=== PATIENT | female | born 1995 | race Caucasian/White ===

== ENCOUNTER 2019-06-28 10:42 | Emergency (ER) | payer BC, SELFPAY ==
[2019-06-28 10:43] VITALS: BP 113/90; PULSE 84; RESP 17; TEMP 36.9; O2SAT 97; BMI 25.6
--- NOTE | 2019-06-28 11:18 | ED.VIS.GEN ---
History of Present Illness Chief Complaint: Other, Pain/Inj Informant: Patient Onset: Days Timing: Continuous, Waxes and wanes Quality: Deep pain rectal area Location: Rectum Current Severity: Discomfort and fullness secondary to hemorrhoids Maximum Severity: Severe - [place] last evening, vaginal Worsened by: Vaginal intercourse Relieved by: Nothing Associated Symptoms: No associated symptoms Narrative: Patient is a 23-year-old female who presents with rectal pain that was worse last evening during vaginal intercourse. Patient states she was seen by the [employer] [facility] approximately 2 weeks ago and prescribed 10 days of doxycycline for presumed infection that may have been related to placement of IUD April 16, 2019. She denies dysuria, frequency, urgency or hematuria. She is had abnormal vaginal bleeding since the IUD was placed. She denies abnormal vaginal discharge. She denies history of STD. She denies recent anal intercourse. She denies fever, chills or night sweats. She denies flank pain. She denies myalgias arthralgias or rash. Prior similar symptoms: No Recent Illness/Hospitalization: No Past Medical History - Allergies and Home Meds Allergies/Adverse Reactions: Allergies No Known Allergies Allergy (Verified 06/28/19 10:43) Primary Care Physician: [facility] Doctor,Out of [NON-STAFF] - Prior records reviewed: Yes Surgical History: appendectomy, - - Closed reduction of femur fracture Lives: Spouse/ Significant Other Smoking Status: Never smoker Drugs: None - Family History Maternal Family History: Reports: No pertinent history Review of Systems General: Denies: Chills, Fever Eyes: Denies: Visual changes - bilaterally, Blurred Vision - bilaterally, Diplopia ENT: Denies: Rhinorrhea, Sore throat Cardiovascular: Denies: Chest pain, Palpitations Respiratory: Denies: Dyspnea, Cough, Dyspnea on exertion Gastrointestinal: Denies: Abdominal pain, Nausea, Vomiting, Diarrhea Genitourinary: Denies: Dysuria, Hematuria, Frequency Musculoskeletal: Denies: Myalgias, Arthralgias, Neck pain, Back pain, Extremity Pain Skin: Denies: Rash, Wounds Neurological: Denies: Headache, Weakness, Numbness Psych: Denies: Depression, Anxiety Endocrine: Denies: Polyuria, Polydipsia Hematologic: Denies: Easy bruising, Easy bleeding Physical Exam Vital Signs/Narrative: Vital Signs Temp Pulse Resp BP Pulse Ox 06/28/19 10:43 98.4 F 84 17 113/90 H 97 Inital Vital Signs reviewed: Yes General: Well nourished, Well developed, No Acute Distress Head: Normocephalic, Atraumatic Eyes: Perrl, EOMI. Negative for: Pale conjunctiva, Scleral icterus ENT: Moist mucous membranes, No rhinorrhea Neck: Supple, Nontender, No lymphadenopathy, No JVD Cardiovascular: Regular rate, Regular rhythm, No murmurs, Normal S1, Normal S2 Respiratory: No distress, CTA bilaterally, Chest nontender Rectal: - - Small hemorrhoid noted 5:00 lithotomy position. No pain with palpation. There is discomfort with pressure applied to the cervix. : - - External genitalia normal. Vaginal mucosa appears normal. String for IUD noted. Patient had significant tenderness with palpation of the uterus and limited exam. Positive cervical motion tenderness. There is tenderness right and left adnexa as well. No appreciable mass noted. Back: Nontender, Normal Inspection Extremities: Nontender, No edema Skin: Normal color, No rash Neurological: Alert, Oriented x3, Cranial nerves II-XII grossly intact, Normal Strength, Normal Sensation Psychological: Normal affect, Normal Mood Diagnostic/Tx/Re-eval Impressions Transvaginal US 06/28/19 13:17 IMPRESSION: IUD seen within the endometrium. Moderate amount of free fluid in the cul-de-sac. Electronically Signed: Jeffry Andersen, at 14:40 EDT , Service support , 06/28/19 13:17 Transvaginal Non- [US] Stat Laboratory Results 06/28/19 06/28/19 11:24 11:24 WBC 6.4 RBC 4.52 Hgb 13.6 Hct 41.5 MCV 91.8 MCH 30.1 MCHC 32.8 RDW Std Deviation 46.0 H RDW Coeff of Junior 13.5 Plt Count 258 MPV 9.5 Immature Gran % (Auto) 0.600 Neut % (Auto) 68.5 Lymph % (Auto) 20.6 [place] % (Auto) 8.6 Eos % (Auto) 1.2 Baso % (Auto) 0.5 Absolute Neuts (auto) 4.4 Absolute Lymphs (auto) 1.32 Nucleated RBC % 0 Serum , Qual NEGATIVE Negative test and moderate amount of fluid and abrupt pain suspect ruptured ovarian cyst. Since patient is heme dynamically stable will discharge to home with appropriate home-going instruction and NSAID. Patient reports marked improvement after IV Toradol. - Medical Decision Making Since patient is complaining of pain that is worse with intercourse and there was concern for infection status post placement of IUD will perform pelvic and ultrasound if indicated. Differential diagnosis includes dyspareunia secondary to STD versus complications of IUD placement versus salpingitis. ED Disposition - Plan for ED Patient: Disposition: Home or Assisted Living Diagnosis: Ruptured ovarian cyst Instructions: Ovarian Cyst Prescriptions: Naproxen [Naprosyn] 500 mg PO BID #10 tab Transmission Status: Pending to [facility] Referrals: [facility] Doctor,Out of [NON-STAFF] - 3-5 Days if not improving Additional Instructions: Your prescription was electronically transmitted to [facility]'s pharmacy.
[2019-06-28 11:38] LABS: Absolute Lymphocyte Count 1.32 X10^3/uL (0.83-4.51); Absolute Neutrophil Count 4.4 X10^3/uL (2.0-7.7); Basophil# 0.03 X10^3/uL; Basophil% 0.5 % (0-1); Eosinophil# 0.08 X10^3/uL; Eosinophils% 1.2 % (0-5); Hematocrit 41.5 % (37-47); Hemoglobin 13.6 g/dL (12.0-15.0); Lymphocyte # 1.32 X10^3/ul (4.0); Lymphocyte % 20.6 % (19-41); Mean Corp Hgb Conc 32.8 g/dL (32-36); Mean Corpuscular Hgb 30.1 pg (27.0-32.0); Mean Corpuscular Volume 91.8 fL (81-99); Mean Platelet Vol. 9.5 fl (6.2-12.0); Monocyte# 0.55 X10^3/uL; Monocyte% 8.6 % (0-10); NRBC Flagged by Analyzer 0 % (0-5); Neutrophil # 4.39 X10^3/uL (2.7-7.7); Neutrophil % 68.5 % (47-70); Platelet Count 258 K/mm3 (150-450); RBC Distribution Width CV 13.5 % (11.6-14.6); Red Blood Count 4.52 M/mm3 (4.2-5.4); White Blood Count 6.4 K/mm3 (4.4-11.0)
[2019-06-28 12:04] LABS: Internal QC Validated? YES +Cl - CLEAR BKGD; Pregnancy, Serum, hCG Quali. NEGATIVE Negative
--- NOTE | 2019-06-28 13:17 | US_ITS ---
STUDY: ULTRASOUND OF THE FEMALE PELVIS - COMPLETE REASON FOR EXAM: Female, 23 years old. Pain following recent IUD placement. LMP: Unknown. TECHNIQUE: Transvaginal TECHNICAL QUALITY: Adequate. COMPARISON: None. FINDINGS: The uterus is anteverted and is in a midline position. The uterus measures 7.8 cm x 3.6 cm x 5.1 cm. Normal uterine cervix. The endometrium measures 4.0 mm in thickness, and is hyperechoic. There is no demonstrated endometrial mass. There is no demonstrated myometrial mass. I.U.D. - The patient does have an I.U.D. The right ovary is visualized. The right ovary measures 5.1 cm x 2.9 cm x 3 cm. There is no right ovarian cyst or ovarian mass. There is no visualized right adnexal mass or complex lesion. There is normal arterial and normal venous vascularity. The left ovary is visualized. The left ovary measures 3.3 cm x 2.1 cm x 2.2 cm. There is no left ovarian cyst or ovarian mass. There is no visualized left adnexal mass or complex lesion. There is normal arterial and normal venous vascularity. There is a moderate amount of fluid in the cul-de-sac. Polycystic ovary disease: No. US/Transvaginal Non- IMPRESSION: IUD seen within the endometrium. Moderate amount of free fluid in the cul-de-sac. Electronically Signed: Jeffry Andersen, at 14:40 EDT , Service support ,
[2019-06-28] MEDS: Ketorolac 15 MG/ML Vial IV (14:12)
[2019-06-28 16:06] VITALS: PULSE 79; RESP 17; O2SAT 98
== END 2019-06-28 16:06 | disposition home or self-care (01) ==
PROVIDERS: Emergency Provider Emergency Medicine; Family Provider Internal Medicine; PCP Internal Medicine
DX: N83.209 Unspecified ovarian cyst, unspecified side (principal); K62.89 Other specified diseases of anus and rectum
CPT/HCPCS: 76830; 84703; 85025; 93976; 96374; 99283; A4216

== ENCOUNTER → 2022-03-26 | Outpatient (CLI) | payer OTHER, SELFPAY ==
[2022-03-26 14:18] LABS: Mucous, Urine 0 SEEN /hpf (<or=2+)
[2022-03-26 14:28] LABS: Glucose, Dipstick Normal (Normal); Ketone-Dipstick Negative (Negative); Leukocyte Esterase-Dipstick 500 /ul (Negative); Nitrite-Dipstick Positive (Negative); Occult Blood-Urine 150 /ul (Negative); Protein-Dipstick 30 mg/dl (Negative); Urine Clarity Sl. Cloudy (Clear); Urine Urobilinogen 8 mg/dl (Normal)
[2022-03-26 14:52] LABS: Bacteria 2+ /hpf (None Seen); Color, Urine SEE COMMENT BELOW (Yellow); Red Blood Cells-Urine 10-25 SEEN /hpf (0-5); Squamous Epithelial Cells - UA 0-5 SEEN /hpf (5-10); Urine Bilirubin Dipstick 6 mg/dL (Negative); White Blood Cells >100 SEEN /hpf (0-5)
== END | disposition home or self-care (01) ==
PROVIDERS: Referring Provider Physician Assistant; Visit Provider Physician Assistant
DX: R35.0 Frequency of micturition (principal)
CPT/HCPCS: 81001; 87086; 87088

== ENCOUNTER 2022-04-03 14:44 | Emergency (ER) | payer OTHER, SELFPAY ==
--- NOTE | 2022-04-03 14:47 | NURSING ---
NO OLD EKGS
[2022-04-03 14:51] VITALS: BP 129/85; PULSE 128; RESP 14; TEMP 37.4; O2SAT 97; BMI 23.6
--- NOTE | 2022-04-03 15:10 | EKG12_ITS ---
Test Reason : PALPS Blood Pressure : / mmHG Vent. Rate : 131 BPM Atrial Rate : 131 BPM P-R Int : 148 ms QRS Dur : 066 ms QT Int : 288 ms P-R-T Axes : 066 059 044 degrees QTc Int : 425 ms Sinus tachycardia Otherwise normal ECG Confirmed by TITUS PHILLIPS, JAYDE ([id number]), fashion editor YAMEL COCHRAN ([id number]) on 04/05/2022 8:43:01 AM Referred By: SRINIVASAN/JAXON Confirmed By:JAYDE QURESHI MD
--- NOTE | 2022-04-03 15:12 | EX.ED.DYSGE1 ---
HPI History of Present Illness Chief Complaint: Palpitations Narrative Narrative: 26-year-old female presenting with generalized malaise. She states she has had COVID since Monday. She states she still having some mild fevers, chills, body aches. She denies chest pain or shortness of breath. He states he has a lot of fatigue and basically sleeps most of the day. She states he has not been drinking very much water because she cannot stay awake for very long. She states he is now having palpitations and feels her heart racing. She denies any chest pain. She states that she is having some lower back pain and is concerned she might have a UTI and she is currently on Cipro. She does report that she has been laying in bed most of the day every day. She denies any trauma. No loss of bladder or bowel control. [facility], [facility] Medical History Acute appendicitis COVID History of hemorrhoids Home Medications dextroamphetamine-amphetamine ER 30 mg 24hr capsule,extend release 1 cap PO DAILY 03/26/22 [History Last Taken Unknown] ciprofloxacin HCl 500 mg tablet 500 mg PO BID #10 tabs 03/30/22 [Rx Last Taken Unknown] ondansetron 4 mg disintegrating tablet 4 mg PO Q8H PRN nausea and vomiting #14 tabs 04/03/22 [Rx Last Taken Unknown] Allergy/AdvReac Type Severity Reaction Status Date / Time No Known Allergies Allergy Verified 03/26/22 13:48 Social History Smoking Status: Never smoker ROS ROS ED Constitutional Constitutional ED: Reports chills and fever(s) Eyes Eyes: Denies change in vision or diplopia ENT ENT ED: Denies rhinorrhea or sore throat Cardiovascular Cardiovascular: Reports palpitations and racing heartbeat; Denies chest pain Respiratory/Chest Respiratory/Chest: Denies cough or dyspnea Gastrointestinal Gastrointestinal: Denies abdominal pain or constipation Genitourinary Genitourinary ED: Reports dysuria Musculoskeletal Musculoskeletal: Reports back pain Integumentary Denies abscess or Abrasions Neurologic Neurologic: Reports headache(s); Denies paresthesias Psychiatric Psychiatric: Denies anxiety or depression Endocrine Endocrinology: Denies cold intolerance or heat intolerance EXAM Physical Exam Const Vital Signs: 04/03/22 14:51 04/03/22 14:56 04/03/22 17:12 Temperature 99.4 F H Temperature Source Oral Pulse Rate 128 H 105 H Respiratory Rate 14 18 Respiratory Effort Normal Non-Labored Blood Pressure 129/85 H 111/77 Blood Pressure Mean 99 88 Pulse Ox 97 98 Oxygen Delivery Method Room Air Room Air 04/03/22 17:49 Temperature Temperature Source Pulse Rate 100 Respiratory Rate 17 Respiratory Effort Blood Pressure Blood Pressure Mean Pulse Ox 100 Oxygen Delivery Method Positive well nourished General Appearance ED: NAD; Negative for pallor HEENT Reports dry mucous membranes Mouth ED: Yes dry mucous membranes Mouth: dry mucous membranes Eyes PERRL and EOMs intact bilaterally General Eye ED: Negative for pale conjunctiva Chest Wall inspection of chest normal and palpation of chest normal Resp normal respiratory effort and clear to auscultation bilaterally Cardio regular rhythm Rate: tachycardic GI normal to inspection, nondistended, normoactive bowel sounds Neuro oriented x3 and CN's II-XII intact bilaterally Sensorium / Orientation: alert Motor Exam: strength 5/5 throughout Psych mental status grossly normal Skin General Skin Exam: Negative for jaundice or pallor MDM MDM MDM Narrative Medical decision making narrative: Patient presenting on her third and fourth day of COVID symptoms. She states he is not able to drink fluids because she is having trouble staying awake because she still tired. She complains of body aches and chills. She also reports intermittent fevers. She is taking [id number] cough cold medicine with some acetaminophen in it. I did recommend to her that noted keep her fevers and body aches down that she should alternate doses of regular strength Tylenol and ibuprofen. I also recommended to her that she drink plenty of fluids and even though she is tired she will need to wake up and drink some fluids in order to keep getting dehydrated. EKG was performed because she was tachycardic and on my interpretation is a sinus tachycardia with a ventricular rate of 131 bpm without signs of ischemic change or dysrhythmia. Chest x-ray on my interpretation shows no acute cardiopulmonary process. Radiologist does agree. CBC shows no leukocytosis. Hemoglobin and hematocrit are stable. Patient noted to be a little leukopenic. Renal function and electrolytes are within normal limits. LFTs are normal. High-sensitivity troponin is 5. I do not believe she needs a second troponin as she is not having any chest pain or shortness of breath. I believe that her tachycardia is from her not drinking fluids. She was reevaluated at 1600 and her heart rate is now 110. She wants me to test her urine because she has history of UTI and is currently on Cipro. She has been unable to provide a sample of this yet. Patient with mild improvement with Toradol and Zofran. Patient able to provide a urine sample and there is some occult blood in the urine without evidence of overt UTI. Because of her back pain and urinary symptoms I did obtain a CT of the abdomen pelvis without contrast which shows no acute findings. Patient counseled that she is dehydrated. I recommended to her that she set an alarm if she is tired she can wake up and drink water in between naps. She was given Zofran for home. Return precautions were discussed. Impression: 1. COVID-19 2. Dehydration 3. Hematuria Lab Data Attestation: I reviewed the patient's lab results. Labs: Laboratory Results - last 24 hr 04/03/22 04/03/22 04/03/22 15:30 15:30 15:30 WBC 6.1 RBC 4.30 Hgb 13.3 Hct 39.4 MCV 91.6 MCH 30.9 MCHC 33.8 RDW Std Deviation 42.9 RDW Coeff of Junior 12.9 Plt Count 205 MPV 9.7 Immature Gran % (Auto) 0.300 Neut % (Auto) 75.6 H Lymph % (Auto) 10.4 L [place] % (Auto) 12.9 H Eos % (Auto) 0.5 Baso % (Auto) 0.3 Absolute Neuts (auto) 4.6 Absolute Lymphs (auto) 0.63 L Nucleated RBC % 0 Sodium 137 Potassium 3.9 Chloride 106 Carbon Dioxide 26.0 Anion Gap 5 BUN 5 L Creatinine 0.67 Estim Creat Clear Calc 124.82 Est GFR (MDRD) Af Amer 137 Est GFR (MDRD) Non-Af 113 BUN/Creatinine Ratio 7.4 L Glucose 90 Calcium 9.1 Total Bilirubin 0.40 AST 21 ALT 30 Alkaline Phosphatase 59 Troponin I High Sens 5 Total Protein 7.1 Albumin 3.7 Globulin 3.4 Albumin/Globulin Ratio 1.1 Serum , Qual NEGATIVE Urine Color Urine Clarity Urine pH Ur Specific [place] Urine Protein Urine Glucose (UA) Urine Ketones Urine Occult Blood Urine Nitrite Urine Bilirubin Urine Urobilinogen Ur Leukocyte Esterase Urine RBC Urine WBC Ur Squamous Epith Cells Urine Bacteria Urine Mucus 04/03/22 16:10 WBC RBC Hgb Hct MCV MCH MCHC RDW Std Deviation RDW Coeff of Junior Plt Count MPV Immature Gran % (Auto) Neut % (Auto) Lymph % (Auto) [place] % (Auto) Eos % (Auto) Baso % (Auto) Absolute Neuts (auto) Absolute Lymphs (auto) Nucleated RBC % Sodium Potassium Chloride Carbon Dioxide Anion Gap BUN Creatinine Estim Creat Clear Calc Est GFR (MDRD) Af Amer Est GFR (MDRD) Non-Af BUN/Creatinine Ratio Glucose Calcium Total Bilirubin AST ALT Alkaline Phosphatase Troponin I High Sens Total Protein Albumin Globulin Albumin/Globulin Ratio Serum , Qual Urine Color Yellow Urine Clarity Sl. Cloudy Urine pH 6.5 Ur Specific [place] 1.015 Urine Protein 15 H Urine Glucose (UA) Normal Urine Ketones 150 A* Urine Occult Blood 250 H Urine Nitrite Negative Urine Bilirubin Negative Urine Urobilinogen 1 H Ur Leukocyte Esterase 25 H Urine RBC 10-25 SEEN Urine WBC 5-10 SEEN Ur Squamous Epith Cells 5-10 SEEN Urine Bacteria 2+ Urine Mucus 0 SEEN Radiography Diagnostic Testing: Clinical Impression(s) from Imaging Studies Chest X-Ray 04/03/22 15:30 IMPRESSION: There are no acute findings. Electronically Signed: Yaw Love MD at 15:44 EDT , Abdomen/Pelvis CT 04/03/22 17:01 IMPRESSION: (NOT LISTED IN ORDER OF SIGNIFICANCE) There are no acute findings. There is free fluid in the pelvis. This can be physiologic. Other findings as above. Electronically Signed: Yaw Love MD at 17:33 EDT , Discharge Plan Triage Chief Complaint: Palpitations ED Provider: Ronni Mcmillan Dx/Rx/DC Orders Instructions: Coronavirus Disease 2019 (COVID-19): Caring for Yourself or Others, ED Dehydration (Adult), ED Hematuria, ED Palpitations Prescriptions: New ondansetron 4 mg tablet,disintegrating 4 mg PO Q8H PRN (Reason: nausea and vomiting) Qty: 14 0RF No Action dextroamphetamine-amphetamine 30 mg capsule,extended release 24hr 1 cap PO DAILY ciprofloxacin HCl 500 mg tablet 500 mg PO BID Qty: 10 0RF Rx Instructions: to start day after completing macrobid if still symptomatic Primary Care Provider: Care Physician,No Primary Referrals: Care Physician,No Primary [Primary Care Provider] - Disposition Disposition: Home, Self Care Discharge Date/Time: 04/03/22 17:50
[2022-04-03] MEDS: 0.9% Normal Saline 1,000 ML 1000 ML IV (15:25)
[2022-04-03] MEDS: Ondansetron 4 MG/2 ML Vial IV (15:25)
[2022-04-03] MEDS: Ketorolac 15 MG/ML Vial IV (15:25)
--- NOTE | 2022-04-03 15:30 | RAD_ITS ---
STUDY: X-RAY CHEST REASON FOR EXAM: Female, 26 years old. CHEST PAIN cough TECHNIQUE: XR Chest 1 View COMPARISON: None FINDINGS: There is no demonstrated pleural abnormality. Normal size heart. Normal mediastinum and laury. Normal visualized pulmonary arteries. Normal visualized aortic arch and descending thoracic aorta. Normal visualized thoracic spine. Normal visualized ribs, clavicles, and shoulders. There is no demonstrated abnormality of the visualized soft tissue structures of the upper abdomen. RAD/Chest 1 View (Portable) IMPRESSION: There are no acute findings. Electronically Signed: Yaw Love MD at 15:44 EDT ,
[2022-04-03 15:41] LABS: Absolute Lymphocyte Count 0.63 X10^3/uL (0.83-4.51); Absolute Neutrophil Count 4.6 X10^3/uL (2.0-7.7); Basophil# 0.02 X10^3/uL; Basophil% 0.3 % (0-1); Eosinophil# 0.03 X10^3/uL; Eosinophils% 0.5 % (0-5); Hematocrit 39.4 % (37-47); Hemoglobin 13.3 g/dL (12.0-15.0); Lymphocyte # 0.63 X10^3/ul (0.83-4.51); Lymphocyte % 10.4 % (19-41); Mean Corp Hgb Conc 33.8 g/dL (32-36); Mean Corpuscular Hgb 30.9 pg (27.0-32.0); Mean Corpuscular Volume 91.6 fL (81-99); Mean Platelet Vol. 9.7 fl (6.2-12.0); Monocyte# 0.78 X10^3/uL; Monocyte% 12.9 % (0-10); NRBC Flagged by Analyzer 0 % (0-5); Neutrophil # 4.59 X10^3/uL (2.7-7.7); Neutrophil % 75.6 % (47-70); Platelet Count 205 K/mm3 (150-450); RBC Distribution Width CV 12.9 % (11.6-14.6); RBC Distribution Width SD 42.9 fl (35.1-43.9); White Blood Count 6.1 K/mm3 (4.4-11.0)
[2022-04-03 15:56] LABS: ALB/GLOB Ratio 1.1 RATIO (0.9-2.4); AST(SGOT) 21 U/L (15-37); Alanine Aminotransfer ALT/SGPT 30 U/L (13-56); Albumin, Serum 3.7 g/dL (3.2-5.0); Alkaline Phosphatase 59 U/L (45-117); Anion Gap 5 (5-15); BUN 5 mg/dL (7-18); BUN/Creat Ratio 7.4 RATIO (10-20); Calcium,Total 9.1 mg/dL (8.5-10.1); Chloride 106 mmol/L (98-107); Creatinine, Serum 0.67 mg/dL (0.55-1.02); EST Glomerular Filtration Rate 113 mL/min (>60); Est Glom Filt Rate - Afr Amer 137 mL/min (>60); Estimated Creatinine Clearance 124.82 ml/min; Globulin 3.4 g/dL (2.2-4.2); Glucose 90 mg/dL (74-106); Potassium 3.9 mmol/L (3.5-5.1); Protein, Total 7.1 g/dL (6.4-8.2); Sodium Level 137 mmol/L (136-145); Troponin-I HS 5 pg/mL (3.0-54.0)
[2022-04-03 15:58] LABS: Internal QC Validated? YES +Cl - CLEAR BKGD; Pregnancy, Serum, hCG Quali. NEGATIVE Negative
[2022-04-03 16:23] LABS: Mucous, Urine 0 SEEN /hpf (<or=2+)
[2022-04-03 16:24] LABS: Color, Urine Yellow (Yellow); Glucose, Dipstick Normal (Normal); Leukocyte Esterase-Dipstick 25 /ul (Negative); Nitrite-Dipstick Negative (Negative); Occult Blood-Urine 250 /ul (Negative); Protein-Dipstick 15 mg/dl (Negative); Specific Gravity, Urine 1.015 (1.002-1.030); Urine Bilirubin Dipstick Negative (Negative); Urine Clarity Sl. Cloudy (Clear); Urine Urobilinogen 1 mg/dl (Normal); Urine pH 6.5 (5.0 - 8.0)
[2022-04-03 16:29] LABS: Ketone-Dipstick 150 mg/dl (Negative)
[2022-04-03 16:31] LABS: White Blood Cells 5-10 SEEN /hpf (0-5)
[2022-04-03 16:32] LABS: Bacteria 2+ /hpf (None Seen); Red Blood Cells-Urine 10-25 SEEN /hpf (0-5); Squamous Epithelial Cells - UA 5-10 SEEN /hpf (5-10)
--- NOTE | 2022-04-03 17:01 | CT_ITS ---
STUDY: CT Abdomen And Pelvis W/O Contrast Injection 04/03/2022 5:31 PM REASON FOR EXAM: Female, 26 years old. ABDOMINAL PAIN flank pain TECHNIQUE: Transaxial images were obtained without oral contrast, and without intravenous contrast. Individualized dose optimization techniques were used for this CT. COMPARISON: Apr 06 2017 4:03pm FINDINGS: The visualized lung bases are unremarkable. The visualized portions of the heart are within normal limits. Unremarkable liver. Unremarkable gallbladder and extrahepatic biliary system. Unremarkable spleen. Unremarkable pancreas. Unremarkable bilateral adrenal glands. No acute findings of the right kidney. No acute findings of the left kidney. Unremarkable visualized stomach. Unremarkable small intestine. Unremarkable colon. There are surgical clips in the region of the appendix consistent with a prior appendectomy. There are no acute findings of the abdominal aorta. Unremarkable inferior vena cava. Subcentimeter mesenteric lymph nodes. Unremarkable urinary bladder. There is free fluid in the pelvis. This can be physiologic. There is an umbilical hernia containing fat. Unremarkable osseous structures. CT/Abdomen/Pelvis without Cont IMPRESSION: (NOT LISTED IN ORDER OF SIGNIFICANCE) There are no acute findings. There is free fluid in the pelvis. This can be physiologic. Other findings as above. Electronically Signed: Yaw Love MD at 17:33 EDT ,
[2022-04-03 17:12] VITALS: BP 111/77; PULSE 105; RESP 18; O2SAT 98
[2022-04-03 17:49] VITALS: PULSE 100; RESP 17; O2SAT 100
== END 2022-04-03 17:50 | disposition home or self-care (01) ==
PROVIDERS: Emergency Provider Student in an Organized Health Care Education/Training Program; Visit Provider Student in an Organized Health Care Education/Training Program
DX: U07.1 COVID-19 (principal); E86.0 Dehydration; R31.9 Hematuria, unspecified
CPT/HCPCS: 71045; 74176; 80053; 81001; 84484; 84703; 85025; 87086; 87088; 93005; 96361; 96374; 96375; 99285; J7030; A4216; J2405

== ENCOUNTER → 2022-07-04 | Outpatient (CLI) | payer OTHER, SELFPAY ==
[2022-07-10 11:22] LABS: HPV Reflexed? NOT INDICATED
== END | disposition home or self-care (01) ==
LOC: LABSPEC 16:53
PROVIDERS: Referring Provider Obstetrics & Gynecology; Visit Provider Obstetrics & Gynecology
DX: Z12.4 Encounter for screening for malignant neoplasm of cervix (principal)
CPT/HCPCS: 88175; G0145

== ENCOUNTER → 2022-07-08 | Outpatient (CLI) | payer OTHER, SELFPAY ==
[2022-07-08 10:47] LABS: Absolute Lymphocyte Count 1.67 X10^3/uL (0.83-4.51); Absolute Neutrophil Count 2.8 X10^3/uL (2.0-7.7); Basophil# 0.02 X10^3/uL; Basophil% 0.4 % (0-1); Eosinophil# 0.13 X10^3/uL; Eosinophils% 2.5 % (0-5); Hematocrit 41.2 % (37-47); Hemoglobin 13.2 g/dL (12.0-15.0); Lymphocyte # 1.67 X10^3/ul (0.83-4.51); Lymphocyte % 31.6 % (19-41); Mean Corpuscular Hgb 28.8 pg (27.0-32.0); Mean Corpuscular Volume 89.8 fL (81-99); Mean Platelet Vol. 9.1 fl (6.2-12.0); Monocyte# 0.68 X10^3/uL; Monocyte% 12.9 % (0-10); NRBC Flagged by Analyzer 0 % (0-5); Neutrophil # 2.76 X10^3/uL (2.7-7.7); Neutrophil % 52.2 % (47-70); Platelet Count 320 K/mm3 (150-450); RBC Distribution Width CV 12.2 % (11.6-14.6); RBC Distribution Width SD 39.8 fl (35.1-43.9); Red Blood Count 4.59 M/mm3 (4.2-5.4); White Blood Count 5.3 K/mm3 (4.4-11.0)
[2022-07-08 11:31] LABS: Vitamin D,25 Hydroxy 22.4 ng/mL
[2022-07-08 11:41] LABS: Estradiol 190.6 pg/mL; Follicle Stimulating Hormone 5.8 mIU/mL; T4 Free Direct 2.05 ng/dL (0.76-1.46); Thyroid Stim Hormone (TSH) < 0.01 uIU/mL (0.358-3.74)
[2022-07-12 16:12] LABS: Testosterone Free 1.7 pg/mL (0.0-4.2)
== END | disposition home or self-care (01) ==
LOC: LABSPEC 10:40
PROVIDERS: Visit Provider Obstetrics & Gynecology
DX: N91.5 Oligomenorrhea, unspecified (principal); R53.83 Other fatigue; R63.5 Abnormal weight gain
CPT/HCPCS: 36415; 82306; 82670; 83001; 84402; 84439; 84443; 85025

== ENCOUNTER → 2022-07-18 | Outpatient (CLI) | payer OTHER, SELFPAY ==
[2022-07-23 07:08] LABS: Thyroid Stim Immunoglob 6.79 IU/L (0.00-0.55)
[2022-07-23 09:44] LABS: Thyroid Peroxidase AB 36 IU/mL (0-34)
== END | disposition home or self-care (01) ==
LOC: LABSPEC 15:33
PROVIDERS: Visit Provider Internal Medicine Endocrinology, Diabetes & Metabolism
DX: E05.90 Thyrotoxicosis, unspecified without thyrotoxic crisis or storm (principal)
CPT/HCPCS: 36415; 84445; 86376

== ENCOUNTER → 2022-08-01 | Outpatient (CLI) | payer OTHER, SELFPAY ==
--- NOTE | 2022-08-01 09:52 | NM_ITS ---
STUDY: NUCLEAR MEDICINE RADIOPHARMACEUTICAL THERAPY ORAL REASON FOR EXAM: Female, 26 years old. Hyperthyroidism -- 12 mci, pat request August 01, 2022 TECHNIQUE: The patient ingested a 13.6 mCi of IODINE-131 for treatment of hyperthyroidism. COMPARISON: None. NM/Therapy I-131 IMPRESSION: The patient ingested 13.6 mCi of IODINE-131 for treatment of hyperthyroidism. Electronically Signed: Jeffry Andersen MD at 11:15 EST ,
[2022-08-01 10:26] LABS: Internal QC Validated? YES +Cl - CLEAR BKGD; Pregnancy, Serum, hCG Quali. NEGATIVE Negative
== END | disposition home or self-care (01) ==
LOC: NM 09:51
PROVIDERS: Nurse Practitioner Family; Referring Provider Internal Medicine Endocrinology, Diabetes & Metabolism; Visit Provider Internal Medicine Endocrinology, Diabetes & Metabolism
DX: E05.90 Thyrotoxicosis, unspecified without thyrotoxic crisis or storm (principal)
CPT/HCPCS: 79005; 84703; A9517

== ENCOUNTER → 2022-10-06 | Outpatient (CLI) | payer OTHER, SELFPAY ==
[2022-10-06 10:15] LABS: Free T3 < 0.5 pg/mL (2.18-3.98); T4 Free Direct 0.15 ng/dL (0.76-1.46)
== END | disposition home or self-care (01) ==
LOC: LAB 07:41
PROVIDERS: Visit Provider Internal Medicine Endocrinology, Diabetes & Metabolism
DX: E05.90 Thyrotoxicosis, unspecified without thyrotoxic crisis or storm (principal)
CPT/HCPCS: 36415; 84439; 84443; 84481

== ENCOUNTER → 2022-12-12 | Outpatient (CLI) | payer OTHER, SELFPAY ==
[2022-12-12 09:05] LABS: T4 Free Direct 0.93 ng/dL (0.76-1.46)
[2022-12-12 09:17] LABS: ALB/GLOB Ratio 1.1 RATIO (0.9-2.4); AST(SGOT) 23 U/L (15-37); Alanine Aminotransfer ALT/SGPT 23 U/L (13-56); Alkaline Phosphatase 73 U/L (45-117); Anion Gap 6 (5-15); BUN 12 mg/dL (7-18); BUN/Creat Ratio 16.7 RATIO (10-20); Calcium,Total 9.2 mg/dL (8.5-10.1); Chloride 106 mmol/L (98-107); Cholesterol 220 mg/dL (200); Creatinine, Serum 0.72 mg/dL (0.55-1.02); EST Glomerular Filtration Rate 104 mL/min (>60); Est Glom Filt Rate - Afr Amer 126 mL/min (>60); Globulin 3.5 g/dL (2.2-4.2); Glucose 98 mg/dL (74-106); High Density Lipoprotein 80 mg/dL; Potassium 3.6 mmol/L (3.5-5.1); Protein, Total 7.5 g/dL (6.4-8.2); Sodium Level 140 mmol/L (136-145); Triglycerides 36 mg/dL; Very Low Density Lipoprotein 7 mg/dL (5-40)
== END | disposition home or self-care (01) ==
LOC: LAB 08:16
PROVIDERS: PCP Nurse Practitioner Family; Visit Provider Internal Medicine Endocrinology, Diabetes & Metabolism
DX: E03.9 Hypothyroidism, unspecified (principal)
CPT/HCPCS: 36415; 80053; 80061; 84439; 84443

== ENCOUNTER → 2023-08-21 | Outpatient (CLI) | payer OTHER, SELFPAY ==
[2023-08-21 17:54] LABS: Prolactin 22.2 ng/mL
[2023-08-24 19:07] LABS: Testosterone Free 0.8 pg/mL (0.0-4.2)
== END | disposition home or self-care (01) ==
LOC: LAB 16:41
PROVIDERS: Referring Provider Obstetrics & Gynecology; Visit Provider Obstetrics & Gynecology
DX: E03.9 Hypothyroidism, unspecified (principal); N93.9 Abnormal uterine and vaginal bleeding, unspecified
CPT/HCPCS: 36415; 82627; 84146; 84402; 82626

== ENCOUNTER → 2024-10-31 | Outpatient (CLI) | payer OTHER, SELFPAY ==
[2024-11-05 04:06] LABS: Chlamydia By Nucleic Acid AMP Negative (Negative); Gonococcus By Nucleic Acid AMP Negative (Negative)
[2024-11-08 12:45] LABS: HPV Reflexed? NOT INDICATED
== END | disposition home or self-care (01) ==
LOC: LABSPEC 17:10
PROVIDERS: Referring Provider Advanced Practice Midwife; Visit Provider Advanced Practice Midwife
DX: Z12.4 Encounter for screening for malignant neoplasm of cervix (principal); Z11.3 Encounter for screening for infections with a predominantly sexual mode of transmission; Z11.8 Encounter for screening for other infectious and parasitic diseases
CPT/HCPCS: 87491; 87591; 88175; G0145

== ENCOUNTER → 2025-08-15 | Outpatient (CLI) | payer OTHER, SELFPAY ==
[2025-08-18 23:08] LABS: Chlamydia By Nucleic Acid AMP Negative (Negative); Gonococcus By Nucleic Acid AMP Negative (Negative)
== END | disposition home or self-care (01) ==
PROVIDERS: Visit Provider Obstetrics & Gynecology
DX: O09.90 Supervision of high risk pregnancy, unspecified, unspecified trimester (principal); Z3A.00 Weeks of gestation of pregnancy not specified
CPT/HCPCS: 87086; 87491; 87591

== ENCOUNTER → 2025-09-03 | Outpatient (CLI) | payer OTHER, SELFPAY ==
[2025-09-03 12:22] LABS: Hematocrit 40.5 % (37-47); Hemoglobin 13.8 g/dL (12.0-15.0); Immature Granulocytes Count 0.040 X10^3/uL (0.0-0.0); Mean Corp Hgb Conc 34.1 g/dL (32-36); Mean Corpuscular Volume 90.8 fL (81-99); Mean Platelet Vol. 10.0 fl (6.2-12.0); NRBC Flagged by Analyzer 0 % (0-5); Platelet Count 315 K/mm3 (150-450); RBC Distribution Width CV 13.3 % (11.6-14.6); RBC Distribution Width SD 44.0 fl (35.1-43.9); Red Blood Count 4.46 M/mm3 (4.2-5.4); White Blood Count 7.4 K/mm3 (4.4-11.0)
[2025-09-03 13:17] LABS: HIV Nonreactive (Nonreactive); Hepatitis B Surface Antigen Nonreactive (Nonreactive); Hepatitis C Antibody Nonreactive (Nonreactive); Syphilis Antibodies Nonreactive (Nonreactive)
== END | disposition home or self-care (01) ==
PROVIDERS: Referring Provider Obstetrics & Gynecology; Visit Provider Obstetrics & Gynecology
DX: O09.90 Supervision of high risk pregnancy, unspecified, unspecified trimester (principal); O99.280 Endocrine, nutritional and metabolic diseases complicating pregnancy, unspecified trimester; E03.9 Hypothyroidism, unspecified; E05.00 Thyrotoxicosis with diffuse goiter without thyrotoxic crisis or storm
CPT/HCPCS: 36415; 84439; 84443; 85025; 86376; 86703; 86762; 86780; 86803; 86850; 86900; 86901; 87340

== ENCOUNTER → 2025-09-11 | Outpatient (CLI) | payer OTHER, SELFPAY | END | disposition home or self-care (01) | LOC: BWCLAB 08:10 | PROVIDERS: Visit Provider Internal Medicine Endocrinology, Diabetes & Metabolism | DX: E03.9 Hypothyroidism, unspecified (principal) | CPT/HCPCS: 36415; 84439; 84443 ==